=== PATIENT | male | born 1960 | race Caucasian/White ===

== ENCOUNTER 2022-08-07 09:23 | Emergency (ER) | payer BC ==
[~2022-08-07] VITALS: Ht 170.2 cm; Wt 68.0 kg
[2022-08-07 09:27] VITALS: BP_SYST 140
[2022-08-07] MEDS ORDERED: KETOROLAC TROMETHAMINE 30 MG VIAL IVP ONE (09:45)
[2022-08-07] MEDS ORDERED: NACL 0.9% 1,000 ML IV ONE (09:45)
[2022-08-07] MEDS ORDERED: LORazepam 2 MG/ML VIAL IVP ONE ×2 (09:45→11:45)
[2022-08-07 10:37] LABS: BASOPHILS % (AUTO) 0.7 % (0.0-2.0); EOSINOPHILS % (AUTO) 0.7 % (0.0-4.0); HEMATOCRIT 35.6 % (36-54); HEMOGLOBIN 12.6 g/dL (14.0-18.0); LYMPHOCYTES # (AUTO) 0.9 K/uL (1.0-5.5); LYMPHOCYTES % (AUTO) 12.5 % (20.5-51.5); MEAN CORPUSCULAR HEMOGLOBIN 36 pg (27-31); MEAN CORPUSCULAR HGB CONC 35 % (32-36); MEAN CORPUSCULAR VOLUME 102 fL (79.0-98.0); MONOCYTES # (AUTO) 0.6 K/uL (0.0-1.0); MONOCYTES % (AUTO) 8.7 % (1.7-9.3); NEUTROPHILS # (AUTO) 5.5 K/uL (1.8-7.7); NEUTROPHILS % (AUTO) 77.4 % (40.0-70.0); PLATELET COUNT (AUTO) 192 K/uL (130-430); RED BLOOD CELL COUNT(AUTO) 3.49 MIL/uL (4.2-6.2); RED CELL DISTRIBUTION WIDTH 12.7 % (9.0-15.0)
[2022-08-07 12:31] LABS: CALCIUM 7.2 mg/dL (8.4-11.0); CREATININE 0.91 mg/dL (0.55-1.30)
[2022-08-07 12:36] LABS: ALBUMIN 2.6 g/dL (3.4-4.8); TOTAL BILIRUBIN 0.7 mg/dL (0.0-1.0)
[2022-08-07] MEDS ORDERED: LORA-259 PO (12:42)
[2022-08-07] MEDS ORDERED: ONDANSETRON 4 MG ODT TAB PO ONE (12:45)
[2022-08-07 13:04] VITALS: BP_SYST 154
== END 2022-08-07 13:02 | disposition home or self-care (01) ==
LOC: SED 09:23
DX: E86.0 Dehydration (principal); F10.239 Alcohol dependence with withdrawal, unspecified; E87.1 Hypo-osmolality and hyponatremia; R11.0 Nausea; Z79.899 Other long term (current) drug therapy; Y90.6 Blood alcohol level of 120-199 mg/100 ml
CPT/HCPCS: 99284; 96374; 96361; 96375; 80053; 85025; 36415; 96376; G0482; Q0162; J1885; J2060; J7030